=== PATIENT | female | born 1965 | race American Indian/Alaskan Native ===

== ENCOUNTER 2019-11-21 11:47 | Emergency (ER) | payer MEDICAID, OTHER ==
[2019-11-21] MEDS ORDERED: IBUPROFEN 600 MG TAB PO ONE (13:07)
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
[2019-11-21 13:14] VITALS: BP 176/105
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
== END 2019-11-21 14:30 | disposition home or self-care (01) ==
LOC: ED 11:47
DX: S39.012A Strain of muscle, fascia and tendon of lower back, initial encounter (principal); S16.1XXA Strain of muscle, fascia and tendon at neck level, initial encounter; R51 Headache; R07.89 Other chest pain; E11.9 Type 2 diabetes mellitus without complications; Z79.899 Other long term (current) drug therapy; Z88.0 Allergy status to penicillin; V89.2XXA Person injured in unspecified motor-vehicle accident, traffic, initial encounter; Y93.89 Activity, other specified; Y92.410 Unspecified street and highway as the place of occurrence of the external cause; Y99.8 Other external cause status
CPT/HCPCS: 71046; 72040; 72072; 72100